=== PATIENT | female | born 1960 | race Caucasian/White ===

== ENCOUNTER 2016-12-23 18:46 | Emergency (ER) | payer MEDICARE, MEDICAID ==
[2016-12-23] MEDS ORDERED: Ondansetron TAB* 4 MG PO ONE (21:59)
[2016-12-23] MEDS ORDERED: NS 0.9% 1000 ML* 2,000 ML IV ONE (22:20)
[2016-12-23 22:53] LABS: Hematocrit 37 % (35-47); Hemoglobin 12.6 g/dl (12.0-16.0); Mean Corpuscular HGB Conc 34 g/dl (31-36); Mean Corpuscular Hemoglobin 28 pg (27-31); Mean Corpuscular Volume 83 fL (80-97); Mean Platelet Volume 8 um3 (7.4-10.4); Red Blood Count 4.48 10^6/ul (4.0-5.4); Red Cell Distribution Width 13 % (10.5-15); White Blood Count 10.3 10^3/ul (3.5-10.8)
[2016-12-23 23:09] LABS: Albumin 4.2 g/dL (3.2-5.2); BUN/Creatinine Ratio 13.7 (8-20); C Reactive Protein 3.11 mg/L (< 5.00); Calcium 8.8 mg/dL (8.6-10.3); EGFR African American 160.4 (>60); EGFR Non-African American 124.7 (>60); Magnesium 1.5 mg/dL (1.9-2.7); Potassium 3.6 mmol/L (3.5-5.0); Total Bilirubin 0.6 mg/dL (0.2-1.0); Total Protein 7.2 g/dL (6.4-8.9)
[2016-12-23] MEDS ORDERED: Potassium Chlor TAB* 20 MEQ TAB.ER PO ONE (23:12)
[2016-12-23] MEDS ORDERED: Magnesium Sulfate 2 GM IV* 2 GM/50 ML BAG IVPB ONE (23:12)
[2016-12-24 00:06] LABS: Urine Bilirubin Negative (Negative); Urine Glucose Negative (Negative); Urine Nitrite Negative (Negative)
--- NOTE | 2016-12-24 01:04 | ED ---
Suzette Hendricks Alfonso, scribed for Franchesca Waller MD on 12/23/16 at 2231 . GI/ HPI - HPI Summary HPI Summary: This patient is a 56 year old F presenting to [facility] accompanied by female cousin with a chief complaint of vomiting since 1629 today. Her vomiting has since resolved. The patient was preparing today for a colonoscopy scheduled for tomorrow. Her MD recommended she stop drinking the GaviLyte. The patient rates the pain 0/10 in severity. Symptoms aggravated by nothing. Symptoms alleviated by spontaneous resolution. Patient reports dizziness (lightheadedness) and nausea. Patient denies CP, SOB, and dysuria. PMHx includes DM and HTN. - History of Current Complaint Chief Complaint: EDNauseaVomitDiarrh Time Seen by Provider: 12/23/16 22:20 Stated Complaint: VOMITING WHILE PREPPING FOR COLONOSCOPY Hx Obtained From: Patient Onset/Duration: Started Hours Ago - 1629 today, Resolved Timing: Constant Pain Intensity: 0 - /10 Associated Signs and Symptoms: Positive: Other: - dizziness (lightheadedness) and nausea. Patient denies CP, SOB, and dysuria. Aggravating Factor(s): Nothing Alleviating Factor(s): Spontaneous Resolution - Allergy/Home Medications Allergies/Adverse Reactions: Allergies Allergy/AdvReac Type Severity Reaction Status Date / Time Atropine [From Donnagel] AdvReac Severe Vomiting Verified 12/23/16 18:56 Hyoscyamine [From Donnagel] AdvReac Severe Vomiting Verified 12/23/16 18:56 Kaolin [From Donnagel] AdvReac Severe Vomiting Verified 12/23/16 18:56 Pectin [From Donnagel] AdvReac Severe Vomiting Verified 12/23/16 18:56 Scopolamine [From Donnagel] AdvReac Severe Vomiting Verified 12/23/16 18:56 PMH/Surg Hx/FS Hx/Imm Hx Endocrine/Hematology History: Reports: Hx Diabetes Denies: Hx Systemic Lupus Erythematosus, Hx Thyroid Disease Cardiovascular History: Reports: Hx Hypertension Denies: Hx Congestive Heart Failure Respiratory History: Denies: Hx Asthma, Hx Chronic Obstructive Pulmonary Disease (COPD) GI History: Denies: Hx Ulcer History: Denies: Hx Dialysis, Hx Renal Disease Musculoskeletal History: Denies: Hx Rheumatoid Arthritis - Cancer History Hx Chemotherapy: No Infectious Disease History: No Infectious Disease History: Denies: Hx Hepatitis, Hx Human Immunodeficiency Virus (HIV), Traveled Outside the [place] in Last 30 Days - Family History Known Family History: Positive: Other - colon cancer grandfather - Social History Lives: With Family - female cousin Alcohol Use: None Hx Substance Use: No Substance Use Type: Reports: None Hx Tobacco Use: No Smoking Status (MU): Never Smoked Tobacco Review of Systems Negative: Chest Pain Negative: Shortness Of Breath Positive: Vomiting, Nausea Negative: dysuria Neurological: Other - Dizziness All Other Systems Reviewed And Are Negative: Yes Physical Exam - Summary Physical Exam Summary: General: Well appearing, no pain distress Skin: Warm, Skin Color Reflects Adequate Perfusion, Dry Eyes: EOMI, WANDER ENT: Pharynx normal, TMs normal Neck: Supple, nontender Respiratory: CTA, breath sounds present, no rhonchi, no wheezes, no rales Cardiovascular: RRR, no murmur, no rub, no gallop Abdomen: Soft, nontender, Non-distended, no guarding, no rebound Bowel: Present Musculoskeletal: ALEXIS, No edema Neuro: Sensory/motor intact, A&Ox3, CN intact 2-12 Psych: Affect/mood appropriate Triage Information Reviewed: Yes Vital Signs On Initial Exam: Initial Vitals Temp Pulse Resp BP Pulse Ox 98.1 F 88 18 180/85 98 12/23/16 18:52 12/23/16 18:52 12/23/16 18:52 12/23/16 18:52 12/23/16 18:52 Vital Signs Reviewed: Yes Diagnostics - Vital Signs Vital Signs Temp Pulse Resp BP Pulse Ox 12/23/16 20:53 97.6 F 86 18 178/84 98 12/23/16 18:52 98.1 F 88 18 180/85 98 - Laboratory Lab Results: Lab Results 12/23/16 12/23/16 12/23/16 Range/Units 22:39 22:39 23:40 WBC 10.3 (3.5-10.8) 10^3/ul RBC 4.48 (4.0-5.4) 10^6/ul Hgb 12.6 (12.0-16.0) g/dl Hct 37 (35-47) % MCV 83 (80-97) fL MCH 28 (27-31) pg MCHC 34 (31-36) g/dl RDW 13 (10.5-15) % Plt Count 341 (150-450) 10^3/ul MPV 8 (7.4-10.4) um3 Neut % (Auto) 70.8 (38-83) % Lymph % (Auto) 23.3 L (25-47) % [place] % (Auto) 5.2 (1-9) % Eos % (Auto) 0.2 (0-6) % Baso % (Auto) 0.5 (0-2) % Absolute Neuts (auto) 7.3 (1.5-7.7) 10^3/ul Absolute Lymphs (auto) 2.4 (1.0-4.8) 10^3/ul Absolute Monos (auto) 0.5 (0-0.8) 10^3/ul Absolute Eos (auto) 0 (0-0.6) 10^3/ul Absolute Basos (auto) 0.1 (0-0.2) 10^3/ul Absolute Nucleated RBC 0.01 10^3/ul Nucleated RBC % 0.1 Sodium 126 L (133-145) mmol/L Potassium 3.6 (3.5-5.0) mmol/L Chloride 92 L (101-111) mmol/L Carbon Dioxide 23 (22-32) mmol/L Anion Gap 11 (2-11) mmol/L BUN 7 (6-24) mg/dL Creatinine 0.51 (0.51-0.95) mg/dL Est GFR ( Amer) 160.4 (>60) Est GFR (Non-Af Amer) 124.7 (>60) BUN/Creatinine Ratio 13.7 (8-20) Glucose 150 H (70-100) mg/dL Calcium 8.8 (8.6-10.3) mg/dL Magnesium 1.5 L (1.9-2.7) mg/dL Total Bilirubin 0.60 (0.2-1.0) mg/dL AST 13 (13-39) U/L ALT 13 (7-52) U/L Alkaline Phosphatase 49 (34-104) U/L C-Reactive Protein 3.11 (< 5.00) mg/L Total Protein 7.2 (6.4-8.9) g/dL Albumin 4.2 (3.2-5.2) g/dL Globulin 3.0 (2-4) g/dL Albumin/Globulin Ratio 1.4 (1-3) Lipase 14 (11.0-82.0) U/L Urine Color Colorless Urine Appearance Clear Urine pH 7.0 (5-9) Ur Specific [place] 1.001 L (1.010-1.030) Urine Protein Negative (Negative) Urine Ketones Negative (Negative) Urine Blood Negative (Negative) Urine Nitrate Negative (Negative) Urine Bilirubin Negative (Negative) Urine Urobilinogen Negative (Negative) Ur Leukocyte Esterase Negative (Negative) Urine Glucose Negative (Negative) Result Diagrams: 12/23/16 22:39 12/23/16 22:39 Lab Statement: Any lab studies that have been ordered have been reviewed, and results considered in the medical decision making process. - EKG 2321 Cardiac Rate: NL - BPM 82 EKG Rhythm: Sinus Rhythm EKG Interpretation: NAD EKG Comparison: No Significant Change - 07/03/14 Re-Evaluation - Re-Evaluation First Eval Re-Evaluation Time: 00:56 Comment: Patient is feeling better. GIGU Course/Dx - Course Course Of Treatment: 56 yo female with vomiting in reaction to golytely she was sl low on her sodium, borderline low potassium and low mag. the potassium and mag were repleted and she felt better, she was told by GI to cancel her appt for tomorrow for colonoscopy. - Diagnoses Provider Diagnoses: Low blood magnesium Discharge - Discharge Plan Condition: Stable Disposition: HOME Patient Education Materials: Hypokalemia (ED), Hypomagnesemia (ED) Referrals: Trae Bourne MD [Primary Care Provider] - 3 Days Additional Instructions: RETURN TO THE EMERGENCY DEPARTMENT FOR CHANGING OR WORSENING SYMPTOMS. The documentation as recorded by the Suzette montoya Alfonso accurately reflects the service I personally performed and the decisions made by me, Franchesca Waller MD.
[2016-12-24 01:32] VITALS: BP 161/79
== END 2016-12-24 01:31 | disposition home or self-care (01) ==
LOC: ED 18:46
DX: E61.2 Magnesium deficiency (principal); R42 Dizziness and giddiness; R11.2 Nausea with vomiting, unspecified
CPT/HCPCS: 36415; 80053; 81003; 83690; 83735; 85025; 86140; 93005; 99283; A9270-GY; J3475